=== PATIENT | male | born 1995 | race African-American/Black ===

== ENCOUNTER 2024-03-22 03:19 | Inpatient (IN) | payer OTHER ==
[~2024-03-22] VITALS: Ht 182.9 cm; Wt 69.9 kg
[2024-03-22] MEDS: SODIUM CHLORIDE 0.9% (SEPSIS BOLUS) IV ONE (03:50)
[2024-03-22 03:55] LABS: HEMATOCRIT. 50.8 % (42.0-52.0); HEMOGLOBIN. 15.6 g/dL (14.0-18.0); MEAN CORPUSCULAR HEMOGLOBIN 31.3 pg (28.0-32.0); MEAN CORPUSCULAR HGB CONC 30.7 g/dL (31.0-37.0); MEAN PLATELET VOLUME 9.6 fl (7.4-10.4); PLATELET 295 x1000/uL (130-400); RED BLOOD CELL COUNT 4.98 mill/uL (4.7-6.1); RED CELL DISTRIBUTION WIDTH 16.3 % (11.6-14.6); WHITE BLOOD COUNT 34.2 x1000/uL (4.5-11.0)
[2024-03-22 04:03] LABS: CHLORIDE 93 mEq/L (98-107); SODIUM 128 mEq/L (136-145)
[2024-03-22 04:04] LABS: CALCIUM 9.3 mg/dL (8.7-10.4)
[2024-03-22 04:08] LABS: CREATININE 2.2 mg/dL (0.6-1.3)
[2024-03-22 04:09] LABS: UREA NITROGEN BLOOD 16 mg/dL (9-23)
[2024-03-22 04:10] LABS: TROPONIN I HIGH SENSITIVITY 4 ng/L (3.0-53)
[2024-03-22 04:29] LABS: ETHANOL BLOOD < 10 mg/dL (<10)
[2024-03-22 04:30] LABS: CARBON DIOXIDE < 10 mEq/L (21-32); GLUCOSE 958 mg/dL (70-105)
[2024-03-22 04:32] LABS: LACTIC ACID 4.2 mmol/L (0.4-2.0)
[2024-03-22 04:54] LABS: CLARITY URINE CLEAR (CLEAR); COLOR URINE YELLOW (YELLOW); GLUCOSE URINE 3+ (NEGATIVE); KETONES URINE 4+ (NEGATIVE); LEUKOCYTE ESTERASE URINE NEGATIVE (NEGATIVE); NITRITE URINE NEGATIVE (NEGATIVE); OCCULT BLOOD URINE TRACE (NEGATIVE); PROTEIN URINE 1+ (NEGATIVE); SPECIFIC GRAVITY URINE 1.029 (1.005-1.030); UROBILINOGEN URINE 0.2 E.U./dL (0.2-1.0)
[2024-03-22 04:56] LABS: BG BASE EXCESS -28.8 mmol/L (-2.0-3.0); BG CARBOXYHEMOGLOBIN 0.4 % (0.5-1.5); BG DEOXYHEMOGLOBIN 2.6 % (0.0-5.0); BG FRACTION INSPIRED OXYGEN 21; BG HCO3 ACT 2.7 mmol/L (21.0-28.0); BG METHEMOGLOBIN 0.3 % (0.5-1.5); BG OXYGEN SATURATION 97.4 % (94.0-98.0); BG OXYHEMOGLOBIN 96.7 % (94.0-98.0); BG PCO2 14.1 mmHg (35.0-48.0); BG PH 6.904 (7.350-7.450); BG PO2 118.6 mmHg (83.0-108.0); BG SAMPLE SITE RIGHT RADIAL; BG TOTAL HEMOGLOBIN 14.4 g/dL (13.5-17.5); BG VENT MODE ROOM AIR
[2024-03-22 04:57] LABS: DIFFERENTIAL COMMENT 1
[2024-03-22 05:03] LABS: PARTIAL THROMBOPLASTIN TIME 35.2 sec (23.4-31.0); PROTHROMBIN TIME 11.3 sec (9.6-11.0)
[2024-03-22] MEDS ORDERED: MAGNESIUM 2 G PREMIX 50 ML IV PRN (05:15)
[2024-03-22] MEDS ORDERED: DEXTROSE 50% WATER 50ML SYRINGE IV PRN ×3 (05:15→10:45)
[2024-03-22] MEDS ORDERED: VANCOMYCIN 1G PREMIX 200 ML IV ONE (05:15)
[2024-03-22] MEDS ORDERED: BLOOD SUGAR DIAGNOSTIC STRIP TEST PRN (05:15)
[2024-03-22 05:17] LABS: *AMPHETAMINES SCREEN URINE NEGATIVE (NEGATIVE); *BARBITURATES SCREEN URINE NEGATIVE (NEGATIVE); *BENZODIAZEPINES SCREEN URINE NEGATIVE (NEGATIVE); *COCAINE SCREEN URINE NEGATIVE (NEGATIVE); CANNABINOID URINE SCREEN PRESUMPTIVE POSITIVE (NEGATIVE); ECSTASY MDMA SCREEN URINE NEGATIVE (NEGATIVE); METHADONE URINE SCREEN NEGATIVE (NEGATIVE); OPIATES URINE SCREEN NEGATIVE (NEGATIVE); PHENCYCLIDINE URINE SCREEN NEGATIVE (NEGATIVE)
[2024-03-22] MEDS: POTASSIUM CHLORIDE 20MEQ/PACKET PO NR (05:32)
[2024-03-22 05:39] LABS: CALCIUM 8.6 mg/dL (8.7-10.4)
[2024-03-22] MEDS: PIPERACILLIN/TAZO 3.375G/50ML 50 ML IV NR (05:43)
[2024-03-22 05:44] LABS: CREATININE 1.7 mg/dL (0.6-1.3); UREA NITROGEN BLOOD 12 mg/dL (9-23)
[2024-03-22 05:46] LABS: CREATINE KINASE 38 IU/L (46-171)
[2024-03-22] MEDS: SODIUM BICARBONATE 8.4% 50MEQ/50ML SYR IV NR ×2 (05:48→19:07)
[2024-03-22] MEDS: KCL 20MEQ/100ML PREMIX 100 ML IV PRN (05:59)
[2024-03-22 06:00] LABS: CHLORIDE 104 mEq/L (98-107); POTASSIUM 3.3 mEq/L (3.5-5.1); SODIUM 135 mEq/L (136-145)
[2024-03-22] MEDS: SODIUM CHLORIDE 0.9% 1,000 ML IV SCH (06:05)
[2024-03-22 06:22] LABS: GLUCOSE 724 mg/dL (70-105)
[2024-03-22 06:27] LABS: PLATELET ESTIMATE NORMAL
[2024-03-22 06:44] LABS: RBC URINE 0-2 /hpf (0-2); SQUAMOUS EPITHELIAL CELL URINE FEW /lpf (RARE/1+); WBC URINE 0-2 /hpf (0-2)
[2024-03-22 06:47] LABS: BACTERIA URINE TRACE
[2024-03-22 06:51] LABS: CARBON DIOXIDE < 10 mEq/L (21-32)
[2024-03-22] MEDS: BLOOD SUGAR DIAGNOSTIC STRIP TEST SCH ×2 (07:15→08:00)
[2024-03-22 07:40] LABS: BG BASE EXCESS -25.5 mmol/L (-2.0-3.0); BG CARBOXYHEMOGLOBIN 0.1 % (0.5-1.5); BG DEOXYHEMOGLOBIN 2.7 % (0.0-5.0); BG HCO3 ACT 3.6 mmol/L (21.0-28.0); BG METHEMOGLOBIN 0.1 % (0.5-1.5); BG OXYGEN SATURATION 97.3 % (94.0-98.0); BG OXYHEMOGLOBIN 97.1 % (94.0-98.0); BG PCO2 14.3 mmHg (35.0-48.0); BG PH 7.019 (7.350-7.450); BG PO2 105.2 mmHg (83.0-108.0); BG SAMPLE SITE RIGHT RADIAL; BG TOTAL HEMOGLOBIN 15.4 g/dL (13.5-17.5); BG VENT MODE ROOM AIR
[2024-03-22] MEDS: VANCOMYCIN 1.25GM PMX (XELLIA) 250 ML IV NR (07:51)
[2024-03-22] MEDS ORDERED: INSULIN REGULAR 100U/100ML PMX 100 ML IV SCH ×2 (10:45)
[2024-03-22] MEDS: INSULIN REGULAR 100U/100ML PMX 100 ML IV SCH (11:11)
[2024-03-22] MEDS ORDERED: IPRATROPIUM/ALBUTEROL 0.5-3(2.5)MG/3ML NEB HHN PRN (12:30)
[2024-03-22] MEDS ORDERED: CLONIDINE 0.1MG TABLET PO PRN (12:30)
[2024-03-22] MEDS ORDERED: DOCUSATE SODIUM 100MG CAPSULE PO PRN (12:30)
[2024-03-22] MEDS ORDERED: ACETAMINOPHEN 325MG TABLET PO PRN ×2 (12:30)
[2024-03-22] MEDS ORDERED: ONDANSETRON HCL 4MG/2ML INJ IV PRN (12:30)
[2024-03-22 16:10] LABS: BG BASE EXCESS -23.3 mmol/L (-2.0-3.0); BG CARBOXYHEMOGLOBIN 0.3 % (0.5-1.5); BG DEOXYHEMOGLOBIN 2.1 % (0.0-5.0); BG HCO3 ACT 7.1 mmol/L (21.0-28.0); BG METHEMOGLOBIN 0.4 % (0.5-1.5); BG OXYGEN SATURATION 97.9 % (94.0-98.0); BG OXYHEMOGLOBIN 97.2 % (94.0-98.0); BG PCO2 29.7 mmHg (35.0-48.0); BG PH 6.996 (7.350-7.450); BG PO2 114.9 mmHg (83.0-108.0); BG SAMPLE SITE RIGHT RADIAL; BG TOTAL HEMOGLOBIN 15.3 g/dL (13.5-17.5); BG VENT MODE NASAL CANNULA
[2024-03-22 17:15] LABS: CHLORIDE 126 mEq/L (98-107)
[2024-03-22 17:16] LABS: CALCIUM 9.1 mg/dL (8.7-10.4)
[2024-03-22 17:21] LABS: CREATININE 1.6 mg/dL (0.6-1.3)
[2024-03-22 17:56] LABS: SODIUM 153 mEq/L (136-145); UREA NITROGEN BLOOD 15 mg/dL (9-23)
[2024-03-22 18:09] LABS: GLUCOSE 310 mg/dL (70-105)
[2024-03-22 18:11] LABS: CARBON DIOXIDE < 10 mEq/L (21-32); PHOSPHORUS 0.9 mg/dL (2.5-4.9); POTASSIUM 1.6 mEq/L (3.5-5.1)
[2024-03-22 18:30] VITALS: PULSE 116; RESP 24; O2SAT 100
[2024-03-22] MEDS: POTASSIUM CHLORIDE 40 MEQ in SODIUM CHLORIDE 0.9% 230 ML IV PRN (18:31)
[2024-03-22 19:21] LABS: BG CARBOXYHEMOGLOBIN 0.4 % (0.5-1.5); BG DEOXYHEMOGLOBIN 0.2 % (0.0-5.0); BG FRACTION INSPIRED OXYGEN 100; BG HCO3 ACT 9.9 mmol/L (21.0-28.0); BG METHEMOGLOBIN 0.3 % (0.5-1.5); BG OXYGEN SATURATION 99.8 % (94.0-98.0); BG OXYHEMOGLOBIN 99.1 % (94.0-98.0); BG PH 7.044 (7.350-7.450); BG PO2 482.3 mmHg (83.0-108.0); BG SAMPLE SITE RIGHT BRACHIAL; BG TOTAL HEMOGLOBIN 14.5 g/dL (13.5-17.5); BG TOTAL RESPIRATORY RATE 24 b/min; BG VENT MODE VENT - AC
[2024-03-22] MEDS: SODIUM BICARBONATE 100 MEQ in DEXTROSE 5% WATER 900 ML IV SCH (19:25)
[2024-03-22] MEDS: SODIUM PHOSPHATE 15 MMOL in SODIUM CHLORIDE 0.9% 245 ML IV PRN (19:27)
[2024-03-22 20:05] VITALS: PULSE 125; RESP 27; O2SAT 100
[2024-03-22] MEDS: NOREPINEPHRINE 8MG/250ML PMX 250 ML IV PRN (20:12)
[2024-03-22] MEDS: PROPOFOL 10MG/ML 100ML 100 ML IV PRN (20:13)
[2024-03-22 20:26] VITALS: PULSE 118; RESP 25; O2SAT 99
[2024-03-22] MEDS ORDERED: FENTANYL 2500MCG/250ML PMX 250 ML IV ONE (20:45)
[2024-03-22] MEDS ORDERED: LACTATED RINGERS IV NR (21:00)
[2024-03-22 21:03] LABS: CHLORIDE 126 mEq/L (98-107); SODIUM 155 mEq/L (136-145)
[2024-03-22 21:04] LABS: CALCIUM 8.4 mg/dL (8.7-10.4)
[2024-03-22 21:09] LABS: CREATININE 1.6 mg/dL (0.6-1.3); GLUCOSE 332 mg/dL (70-105); UREA NITROGEN BLOOD 18 mg/dL (9-23)
[2024-03-22 21:29] LABS: CARBON DIOXIDE < 10 mEq/L (21-32); PHOSPHORUS 0.7 mg/dL (2.5-4.9); POTASSIUM 2.2 mEq/L (3.5-5.1)
[2024-03-22] MEDS: FENTANYL CITRATE 2,500 MCG in SODIUM CHLORIDE 0.9% 200 ML IV PRN (21:29)
[2024-03-22 21:56] LABS: BG BASE EXCESS -19.9 mmol/L (-2.0-3.0); BG DEOXYHEMOGLOBIN 40.1 % (0.0-5.0); BG FRACTION INSPIRED OXYGEN 50; BG METHEMOGLOBIN 0.3 % (0.5-1.5); BG OXYGEN SATURATION 59.4 % (94.0-98.0); BG OXYHEMOGLOBIN 58.6 % (94.0-98.0); BG PCO2 54.4 mmHg (35.0-48.0); BG PO2 < 30.3 mmHg (83.0-108.0); BG SAMPLE SITE RIGHT RADIAL; BG TOTAL HEMOGLOBIN 12.9 g/dL (13.5-17.5); BG VENT MODE VENT - AC
[2024-03-22 22:59] VITALS: PULSE 114; RESP 33; O2SAT 100
[2024-03-23] VITALS (77 sets, daily range): BP systolic 97–135; BP diastolic 50–83; PULSE 89–136; RESP 21–31; TEMP 36.72516–37.3076; O2SAT 99–100
[2024-03-23 00:43] LABS: CHLORIDE 124 mEq/L (98-107); SODIUM 152 mEq/L (136-145)
[2024-03-23 00:44] LABS: CALCIUM 8.4 mg/dL (8.7-10.4)
[2024-03-23 00:49] LABS: CREATININE 1.6 mg/dL (0.6-1.3); GLUCOSE 369 mg/dL (70-105); UREA NITROGEN BLOOD 16 mg/dL (9-23)
[2024-03-23 00:51] LABS: PHOSPHORUS 1.1 mg/dL (2.5-4.9)
[2024-03-23 00:54] LABS: CARBON DIOXIDE < 10 mEq/L (21-32)
[2024-03-23 02:31] LABS: BG CARBOXYHEMOGLOBIN 0.3 % (0.5-1.5); BG DEOXYHEMOGLOBIN 0.9 % (0.0-5.0); BG FRACTION INSPIRED OXYGEN 40; BG HCO3 ACT 5.5 mmol/L (21.0-28.0); BG METHEMOGLOBIN 0.3 % (0.5-1.5); BG OXYGEN SATURATION 99.1 % (94.0-98.0); BG OXYHEMOGLOBIN 98.5 % (94.0-98.0); BG PCO2 21.8 mmHg (35.0-48.0); BG PH 7.019 (7.350-7.450); BG PO2 159.6 mmHg (83.0-108.0); BG SAMPLE SITE RIGHT BRACHIAL; BG TOTAL HEMOGLOBIN 14.2 g/dL (13.5-17.5); BG VENT MODE VENT - AC
[2024-03-23 03:34] LABS: CHLORIDE 122 mEq/L (98-107); POTASSIUM 4.1 mEq/L (3.5-5.1); SODIUM 149 mEq/L (136-145)
[2024-03-23 03:35] LABS: CALCIUM 8.7 mg/dL (8.7-10.4)
[2024-03-23 03:40] LABS: CREATININE 1.7 mg/dL (0.6-1.3); GLUCOSE 357 mg/dL (70-105); UREA NITROGEN BLOOD 15 mg/dL (9-23)
[2024-03-23 03:42] LABS: CARBON DIOXIDE < 10 mEq/L (21-32)
[2024-03-23] MEDS: DEXT 5%/LACTATED RINGERS 1,000 ML IV SCH (06:37)
[2024-03-23 08:00] LABS: BG BASE EXCESS -16.4 mmol/L (-2.0-3.0); BG CARBOXYHEMOGLOBIN 0.3 % (0.5-1.5); BG DEOXYHEMOGLOBIN 1.1 % (0.0-5.0); BG HCO3 ACT 10.4 mmol/L (21.0-28.0); BG METHEMOGLOBIN 0.2 % (0.5-1.5); BG OXYGEN SATURATION 98.9 % (94.0-98.0); BG OXYHEMOGLOBIN 98.4 % (94.0-98.0); BG PCO2 27.8 mmHg (35.0-48.0); BG PH 7.189 (7.350-7.450); BG PO2 128.6 mmHg (83.0-108.0); BG SAMPLE SITE RIGHT RADIAL; BG TOTAL HEMOGLOBIN 12.9 g/dL (13.5-17.5); BG VENT MODE VENT - AC
[2024-03-23 11:11] LABS: HEMATOCRIT. 36.8 % (42.0-52.0); HEMOGLOBIN. 12.9 g/dL (14.0-18.0); MEAN CORPUSCULAR HEMOGLOBIN 30.9 pg (28.0-32.0); MEAN CORPUSCULAR HGB CONC 35.2 g/dL (31.0-37.0); MEAN CORPUSCULAR VOLUME 87.8 fL (80.0-94.0); PLATELET 180 x1000/uL (130-400); RED BLOOD CELL COUNT 4.19 mill/uL (4.7-6.1); RED CELL DISTRIBUTION WIDTH 14.2 % (11.6-14.6); WHITE BLOOD COUNT 17.7 x1000/uL (4.5-11.0)
[2024-03-23 11:13] LABS: DIFFERENTIAL COMMENT 1
[2024-03-23 11:26] LABS: CHLORIDE 127 mEq/L (98-107)
[2024-03-23 11:29] LABS: CALCIUM 9.4 mg/dL (8.7-10.4); CARBON DIOXIDE 14 mEq/L (21-32)
[2024-03-23 11:34] LABS: CREATININE 1.7 mg/dL (0.6-1.3); UREA NITROGEN BLOOD 12 mg/dL (9-23)
[2024-03-23 11:36] LABS: ALANINE AMINOTRANSFERASE 9 IU/L (10-49); ALBUMIN 3.7 g/dL (3.2-4.8); ASPARTATE AMINOTRANSFERASE 14 IU/L (<34); BILIRUBIN TOTAL 0.4 mg/dL (0.1-1.0); CREATINE KINASE 64 IU/L (46-171)
[2024-03-23] MEDS: PANTOPRAZOLE SODIUM 40 MG/VIAL IV SCH (12:30)
[2024-03-23] MEDS: ENOXAPARIN 40MG/0.4ML SYR SUBCUT SCH (12:30)
[2024-03-23 12:55] LABS: GLUCOSE 160 mg/dL (70-105)
[2024-03-23 12:57] LABS: POTASSIUM 1.5 mEq/L (3.5-5.1)
[2024-03-23 12:58] LABS: PHOSPHORUS < 0.3 mg/dL (2.5-4.9)
[2024-03-23 12:59] LABS: SODIUM 156 mEq/L (136-145)
[2024-03-23] MEDS: KCL 20MEQ/100ML PREMIX 100 ML IV PRN (13:13)
[2024-03-23] MEDS: SODIUM PHOSPHATE 15 MMOL in SODIUM CHLORIDE 0.9% 245 ML IV NR (13:27)
[2024-03-23 14:22] LABS: PLATELET ESTIMATE NORMAL
[2024-03-23] MEDS: MAGNESIUM 2 G PREMIX 50 ML IV ONE (14:22)
[2024-03-23 14:44] LABS: BG BASE EXCESS -11.2 mmol/L (-2.0-3.0); BG CARBOXYHEMOGLOBIN 0.3 % (0.5-1.5); BG DEOXYHEMOGLOBIN 1.1 % (0.0-5.0); BG FRACTION INSPIRED OXYGEN 30; BG HCO3 ACT 13.7 mmol/L (21.0-28.0); BG METHEMOGLOBIN 0.1 % (0.5-1.5); BG OXYGEN SATURATION 98.9 % (94.0-98.0); BG OXYHEMOGLOBIN 98.5 % (94.0-98.0); BG PCO2 28.1 mmHg (35.0-48.0); BG PH 7.305 (7.350-7.450); BG PO2 138.8 mmHg (83.0-108.0); BG SAMPLE SITE RIGHT RADIAL; BG TOTAL HEMOGLOBIN 12.6 g/dL (13.5-17.5); BG TOTAL RESPIRATORY RATE 26 b/min; BG VENT MODE VENT - AC
[2024-03-23 16:35] LABS: CHLORIDE 125 mEq/L (98-107)
[2024-03-23 16:36] LABS: CARBON DIOXIDE 11 mEq/L (21-32)
[2024-03-23 16:37] LABS: CALCIUM 8.7 mg/dL (8.7-10.4)
[2024-03-23 16:41] LABS: CREATININE 1.6 mg/dL (0.6-1.3); GLUCOSE 248 mg/dL (70-105)
[2024-03-23 16:42] LABS: UREA NITROGEN BLOOD 11 mg/dL (9-23)
[2024-03-23 17:24] LABS: POTASSIUM 1.6 mEq/L (3.5-5.1); SODIUM 156 mEq/L (136-145)
[2024-03-23 17:25] LABS: PHOSPHORUS 0.5 mg/dL (2.5-4.9)
[2024-03-23] MEDS: POTASSIUM CHLORIDE 20MEQ/PACKET NG NR (17:39)
[2024-03-23] MEDS: SODIUM PHOSPHATE 15 MMOL in DEXT 5% WATER 250 ML IV NR (18:35)
[2024-03-23] MEDS ORDERED: PROPOFOL 10MG/ML 100ML 100 ML IV PRN (19:45)
[2024-03-23 19:51] LABS: CHLORIDE 124 mEq/L (98-107); SODIUM 153 mEq/L (136-145)
[2024-03-23 19:52] LABS: CALCIUM 8.8 mg/dL (8.7-10.4)
[2024-03-23 19:57] LABS: CREATININE 1.6 mg/dL (0.6-1.3); UREA NITROGEN BLOOD 11 mg/dL (9-23)
[2024-03-23 19:59] LABS: ALBUMIN 3.3 g/dL (3.2-4.8)
[2024-03-23 20:00] LABS: ALANINE AMINOTRANSFERASE 8 IU/L (10-49); ASPARTATE AMINOTRANSFERASE 15 IU/L (<34); BILIRUBIN TOTAL 0.5 mg/dL (0.1-1.0); PROTEIN TOTAL 5.2 g/dL (6.0-8.3)
[2024-03-23 20:37] LABS: POTASSIUM 1.6 mEq/L (3.5-5.1)
[2024-03-23 20:38] LABS: CARBON DIOXIDE < 10 mEq/L (21-32); GLUCOSE 402 mg/dL (70-105)
[2024-03-23] MEDS ORDERED: BLOOD SUGAR DIAGNOSTIC STRIP TEST PRN (21:00)
[2024-03-23] MEDS ORDERED: SODIUM CHLORIDE 0.9% 1,000 ML IV SCH (21:00)
[2024-03-23] MEDS ORDERED: DEXTROSE 50% WATER 50ML SYRINGE IV PRN (21:00)
[2024-03-23] MEDS ORDERED: DEXT 5%/0.9% NACL 1,000 ML IV SCH (21:00)
[2024-03-23] MEDS: MAGNESIUM 2 G PREMIX 50 ML IV PRN (21:50)
[2024-03-23] MEDS: POTASSIUM CHLORIDE 40 MEQ in SODIUM CHLORIDE 0.9% 250 ML IV PRN (22:08)
[2024-03-23] MEDS: POTASSIUM CHLORIDE 20MEQ/PACKET PO NR (22:32)
[2024-03-23 23:51] LABS: POTASSIUM 2.5 mEq/L (3.5-5.1)
[2024-03-24] VITALS (107 sets, daily range): BP systolic 95–132; BP diastolic 53–93; PULSE 68–128; RESP 21–27; TEMP 36.6696–37.00296; O2SAT 94–100
[2024-03-24] MEDS: SODIUM PHOSPHATE 15 MMOL in SODIUM CHLORIDE 0.9% 245 ML IV PRN (00:19)
[2024-03-24 01:32] LABS: CHLORIDE 122 mEq/L (98-107); POTASSIUM 3.3 mEq/L (3.5-5.1); SODIUM 152 mEq/L (136-145)
[2024-03-24 01:33] LABS: CALCIUM 8.9 mg/dL (8.7-10.4)
[2024-03-24 01:38] LABS: CREATININE 1.7 mg/dL (0.6-1.3); UREA NITROGEN BLOOD 10 mg/dL (9-23)
[2024-03-24 01:46] LABS: GLUCOSE 536 mg/dL (70-105)
[2024-03-24 01:47] LABS: CARBON DIOXIDE < 10 mEq/L (21-32)
[2024-03-24 01:47] LABS: PHOSPHORUS 0.7 mg/dL (2.5-4.9)
[2024-03-24] MEDS: KCL 20MEQ/100ML PREMIX 100 ML IV PRN (02:02)
[2024-03-24] MEDS ORDERED: SODIUM CHLORIDE 0.45% 1,000 ML IV SCH (02:15)
[2024-03-24] MEDS: LACTATED RINGERS 1,000 ML IV SCH (04:20)
[2024-03-24] MEDS ORDERED: SODIUM CHLORIDE 0.45% 1,000 ML IV ONE (04:45)
[2024-03-24] MEDS: SODIUM BICARBONATE 8.4% 50MEQ/50ML SYR IV NR (05:37)
[2024-03-24] MEDS ORDERED: SODIUM CHLORIDE 0.45% 1,000 ML IV NR (06:00)
[2024-03-24 06:27] LABS: CARBON DIOXIDE 12 mEq/L (21-32); CHLORIDE 126 mEq/L (98-107)
[2024-03-24 06:32] LABS: CREATININE 1.7 mg/dL (0.6-1.3)
[2024-03-24 06:33] LABS: UREA NITROGEN BLOOD 11 mg/dL (9-23)
[2024-03-24 06:46] LABS: POTASSIUM 2.4 mEq/L (3.5-5.1)
[2024-03-24 06:47] LABS: GLUCOSE 461 mg/dL (70-105)
[2024-03-24 06:48] LABS: PHOSPHORUS 0.4 mg/dL (2.5-4.9)
[2024-03-24 07:00] LABS: TRIGLYCERIDE 1321 mg/dL (0-150)
[2024-03-24 07:03] LABS: SODIUM 160 mEq/L (136-145)
[2024-03-24] MEDS ORDERED: POTASSIUM PHOSPHATE 30 MMOL in DEXT 5% WATER 490 ML IV NR (08:30)
[2024-03-24] MEDS ORDERED: PROPOFOL 10MG/ML 100ML 100 ML IV PRN (09:00)
[2024-03-24] MEDS: POTASSIUM CHLORIDE 20MEQ/PACKET PO NR (09:05)
[2024-03-24] MEDS: SODIUM CHL 0.45% + KCL 20MEQ/L 1,000 ML IV SCH (09:43)
[2024-03-24] MEDS: POTASSIUM PHOSPHATE 15MMOL in DEXTROSE 5% WATER 250ML IV SCH (09:43)
[2024-03-24 09:56] LABS: PHOSPHORUS < 0.3 mg/dL (2.5-4.9)
[2024-03-24] MEDS: MIDAZOLAM 100MG/100ML PMX 100 ML IV PRN (10:09)
[2024-03-24 14:34] LABS: CHLORIDE 124 mEq/L (98-107)
[2024-03-24 14:35] LABS: CALCIUM 8.6 mg/dL (8.7-10.4); CARBON DIOXIDE 15 mEq/L (21-32)
[2024-03-24 14:40] LABS: CREATININE 1.4 mg/dL (0.6-1.3); GLUCOSE 343 mg/dL (70-105); UREA NITROGEN BLOOD 10 mg/dL (9-23)
[2024-03-24 14:44] LABS: POTASSIUM 2.4 mEq/L (3.5-5.1); SODIUM 160 mEq/L (136-145)
[2024-03-24] MEDS: POTASSIUM CHLORIDE 20MEQ/PACKET PO SCH (15:02)
[2024-03-24 16:39] LABS: CALCIUM 8.4 mg/dL (8.7-10.4); CARBON DIOXIDE 14 mEq/L (21-32); CHLORIDE 125 mEq/L (98-107); POTASSIUM 3.4 mEq/L (3.5-5.1)
[2024-03-24 16:44] LABS: CREATININE 1.4 mg/dL (0.6-1.3); GLUCOSE 345 mg/dL (70-105)
[2024-03-24 16:45] LABS: UREA NITROGEN BLOOD 10 mg/dL (9-23)
[2024-03-24 17:02] LABS: SODIUM 163 mEq/L (136-145)
[2024-03-24] MEDS: POTASSIUM PHOSPHATE 10 MMOL in DEXT 5% WATER 246.6667 ML IV NR (21:44)
[2024-03-24 22:05] LABS: BASOPHILS % 0.1 % (0.0-2.0); EOSINOPHILS % 0.2 % (0.0-5.0); HEMATOCRIT. 32.7 % (42.0-52.0); HEMOGLOBIN. 11.6 g/dL (14.0-18.0); LYMPHOCYTES % 8.9 % (20.0-50.0); MEAN CORPUSCULAR HEMOGLOBIN 30.8 pg (28.0-32.0); MEAN CORPUSCULAR HGB CONC 35.4 g/dL (31.0-37.0); MEAN CORPUSCULAR VOLUME 86.9 fL (80.0-94.0); NEUTROPHILS % 84.8 % (40.0-76.0); PLATELET 178 x1000/uL (130-400); RED BLOOD CELL COUNT 3.77 mill/uL (4.7-6.1); RED CELL DISTRIBUTION WIDTH 14.5 % (11.6-14.6); WHITE BLOOD COUNT 15.8 x1000/uL (4.5-11.0)
[2024-03-24 22:08] LABS: CARBON DIOXIDE 19 mEq/L (21-32); CHLORIDE 127 mEq/L (98-107); POTASSIUM 3.3 mEq/L (3.5-5.1)
[2024-03-24 22:09] LABS: CALCIUM 8.6 mg/dL (8.7-10.4)
[2024-03-24 22:13] LABS: CREATININE 1.5 mg/dL (0.6-1.3); GLUCOSE 293 mg/dL (70-105)
[2024-03-24 22:14] LABS: UREA NITROGEN BLOOD 13 mg/dL (9-23)
[2024-03-24 22:16] LABS: PHOSPHORUS 1.4 mg/dL (2.5-4.9)
[2024-03-24 22:30] LABS: SODIUM 163 mEq/L (136-145)
[2024-03-25] VITALS (90 sets, daily range): BP systolic 108–148; BP diastolic 69–108; PULSE 90–141; RESP 15–33; TEMP 36.83628–37.33632; O2SAT 90–100
[2024-03-25 01:24] LABS: CHLORIDE 128 mEq/L (98-107); POTASSIUM 3.6 mEq/L (3.5-5.1)
[2024-03-25 01:25] LABS: CALCIUM 8.5 mg/dL (8.7-10.4); CARBON DIOXIDE 24 mEq/L (21-32)
[2024-03-25 01:29] LABS: CREATININE 1.2 mg/dL (0.6-1.3); GLUCOSE 98 mg/dL (70-105)
[2024-03-25 01:30] LABS: UREA NITROGEN BLOOD 12 mg/dL (9-23)
[2024-03-25 01:32] LABS: PHOSPHORUS 1.3 mg/dL (2.5-4.9)
[2024-03-25 01:51] LABS: SODIUM 165 mEq/L (136-145)
[2024-03-25] MEDS ORDERED: POTASSIUM CHLORIDE 40 MEQ in DEXT 5% WATER 250 ML IV PRN (02:33)
[2024-03-25] MEDS: DEXT 5% WATER + KCL 20MEQ/L 1,000 ML IV SCH (03:22)
[2024-03-25 06:29] LABS: CALCIUM 8.5 mg/dL (8.7-10.4); CARBON DIOXIDE 17 mEq/L (21-32); CHLORIDE 123 mEq/L (98-107); POTASSIUM 3.6 mEq/L (3.5-5.1)
[2024-03-25 06:34] LABS: CREATININE 1.2 mg/dL (0.6-1.3); GLUCOSE 197 mg/dL (70-105)
[2024-03-25 06:35] LABS: TRIGLYCERIDE 620 mg/dL (0-150); UREA NITROGEN BLOOD 11 mg/dL (9-23)
[2024-03-25 06:38] LABS: T4 FREE 0.97 ng/dL (0.89-1.76)
[2024-03-25 06:39] LABS: THYROID STIMULATING HORMONE 0.12 uIU/mL (0.55-4.78)
[2024-03-25 08:14] LABS: SODIUM 161 mEq/L (136-145)
[2024-03-25 08:25] LABS: HEMATOCRIT. 29.4 % (42.0-52.0); HEMOGLOBIN. 10.3 g/dL (14.0-18.0); MEAN CORPUSCULAR HEMOGLOBIN 30.9 pg (28.0-32.0); MEAN CORPUSCULAR VOLUME 88.2 fL (80.0-94.0); MEAN PLATELET VOLUME 8.1 fl (7.4-10.4); PLATELET 170 x1000/uL (130-400); RED BLOOD CELL COUNT 3.33 mill/uL (4.7-6.1); WHITE BLOOD COUNT 15.9 x1000/uL (4.5-11.0)
[2024-03-25 08:27] LABS: DIFFERENTIAL COMMENT 1
[2024-03-25 09:54] LABS: CHLORIDE 126 mEq/L (98-107); POTASSIUM 3.6 mEq/L (3.5-5.1)
[2024-03-25 09:55] LABS: CALCIUM 8.4 mg/dL (8.7-10.4); CARBON DIOXIDE 23 mEq/L (21-32)
[2024-03-25 10:00] LABS: CREATININE 1.1 mg/dL (0.6-1.3); GLUCOSE 163 mg/dL (70-105); UREA NITROGEN BLOOD 11 mg/dL (9-23)
[2024-03-25 10:10] LABS: SODIUM 160 mEq/L (136-145)
[2024-03-25 10:46] LABS: BG BASE EXCESS 0.2 mmol/L (-2.0-3.0); BG CARBOXYHEMOGLOBIN 0.2 % (0.5-1.5); BG DEOXYHEMOGLOBIN 2.3 % (0.0-5.0); BG FRACTION INSPIRED OXYGEN 30; BG HCO3 ACT 23.4 mmol/L (21.0-28.0); BG METHEMOGLOBIN 0.3 % (0.5-1.5); BG OXYGEN SATURATION 97.7 % (94.0-98.0); BG OXYHEMOGLOBIN 97.2 % (94.0-98.0); BG PH 7.469 (7.350-7.450); BG PO2 95.6 mmHg (83.0-108.0); BG SAMPLE SITE RIGHT BRACHIAL; BG VENT MODE VENT - AC
[2024-03-25] MEDS ORDERED: DEXTROSE 50% WATER 50ML SYRINGE IV PRN (15:15)
[2024-03-25] MEDS: BLOOD SUGAR DIAGNOSTIC STRIP TEST SCH (15:24)
[2024-03-25 16:09] LABS: CHLORIDE 119 mEq/L (98-107); POTASSIUM 3.5 mEq/L (3.5-5.1); SODIUM 155 mEq/L (136-145)
[2024-03-25 16:10] LABS: CARBON DIOXIDE 21 mEq/L (21-32)
[2024-03-25 16:11] LABS: CALCIUM 8.3 mg/dL (8.7-10.4)
[2024-03-25 16:15] LABS: CREATININE 1.1 mg/dL (0.6-1.3); GLUCOSE 261 mg/dL (70-105); UREA NITROGEN BLOOD 12 mg/dL (9-23)
[2024-03-25] MEDS: INSULIN LISPRO 100 UNITS/ML SUBCUT SCH (16:25)
[2024-03-25] MEDS: INSULIN GLARGINE 100 UNITS/ML SUBCUT SCH (16:25)
[2024-03-25 18:05] LABS: PLATELET ESTIMATE NORMAL
[2024-03-25] MEDS ORDERED: LACTATED RINGERS 1,000 ML IV SCH (19:00)
[2024-03-25 19:49] LABS: BG BASE EXCESS -0.6 mmol/L (-2.0-3.0); BG CARBOXYHEMOGLOBIN 0.8 % (0.5-1.5); BG DEOXYHEMOGLOBIN 6.2 % (0.0-5.0); BG FRACTION INSPIRED OXYGEN 35; BG HCO3 ACT 22.7 mmol/L (21.0-28.0); BG METHEMOGLOBIN 0.3 % (0.5-1.5); BG OXYGEN SATURATION 93.7 % (94.0-98.0); BG OXYHEMOGLOBIN 92.7 % (94.0-98.0); BG PCO2 32.9 mmHg (35.0-48.0); BG PH 7.457 (7.350-7.450); BG PO2 60.7 mmHg (83.0-108.0); BG SAMPLE SITE RIGHT RADIAL; BG TOTAL HEMOGLOBIN 11.7 g/dL (13.5-17.5); BG VENT MODE COOL AEROSOL
[2024-03-25 21:10] LABS: CHLORIDE 118 mEq/L (98-107); POTASSIUM 3.4 mEq/L (3.5-5.1); SODIUM 153 mEq/L (136-145)
[2024-03-25 21:11] LABS: CARBON DIOXIDE 25 mEq/L (21-32)
[2024-03-25 21:12] LABS: CALCIUM 8.4 mg/dL (8.7-10.4)
[2024-03-25 21:16] LABS: GLUCOSE 250 mg/dL (70-105); UREA NITROGEN BLOOD 12 mg/dL (9-23)
[2024-03-25 21:19] LABS: BETA HYDROXYBUTYRATE 0.8 mMol/L (0.0-0.3)
[2024-03-25] MEDS: QUETIAPINE FUMARATE 50MG TABLET PO SCH (21:40)
[2024-03-26] VITALS (62 sets, daily range): BP systolic 75–145; BP diastolic 38–101; PULSE 79–112; RESP 14–28; TEMP 36.16956–37.16964; O2SAT 84–100
[2024-03-26 05:18] LABS: CARBON DIOXIDE 28 mEq/L (21-32); CHLORIDE 115 mEq/L (98-107); POTASSIUM 4.3 mEq/L (3.5-5.1); SODIUM 151 mEq/L (136-145)
[2024-03-26 05:19] LABS: CALCIUM 8.4 mg/dL (8.7-10.4)
[2024-03-26 05:24] LABS: GLUCOSE 265 mg/dL (70-105); UREA NITROGEN BLOOD 11 mg/dL (9-23)
[2024-03-26 05:26] LABS: PHOSPHORUS 1.8 mg/dL (2.5-4.9)
[2024-03-26 05:42] LABS: BASOPHILS % 0.1 % (0.0-2.0); EOSINOPHILS % 0.8 % (0.0-5.0); LYMPHOCYTES % 12.4 % (20.0-50.0); MEAN CORPUSCULAR HEMOGLOBIN 30.5 pg (28.0-32.0); MEAN CORPUSCULAR HGB CONC 34.5 g/dL (31.0-37.0); MEAN CORPUSCULAR VOLUME 88.5 fL (80.0-94.0); MONOCYTES % 12.4 % (2.0-8.0); NEUTROPHILS % 74.3 % (40.0-76.0); PLATELET 138 x1000/uL (130-400); RED BLOOD CELL COUNT 3.25 mill/uL (4.7-6.1); RED CELL DISTRIBUTION WIDTH 15.1 % (11.6-14.6); WHITE BLOOD COUNT 12.2 x1000/uL (4.5-11.0)
[2024-03-26 06:08] LABS: HEMATOCRIT. 28.7 % (42.0-52.0); HEMOGLOBIN. 9.9 g/dL (14.0-18.0)
[2024-03-26] MEDS: BLOOD SUGAR DIAGNOSTIC STRIP TEST SCH (10:28)
[2024-03-26] MEDS: POTASSIUM PHOSPHATE 20 MMOL in SODIUM CHLORIDE 0.9% 243.3333 ML IV NR (10:32)
[2024-03-26] MEDS ORDERED: BLOOD SUGAR DIAGNOSTIC STRIP TEST SCH (12:00)
[2024-03-27] VITALS (29 sets, daily range): BP systolic 101–127; BP diastolic 70–83; PULSE 69–81; RESP 13–24; TEMP 36.55848–37.05852; O2SAT 97–100
[2024-03-27 05:56] LABS: HEMATOCRIT. 28.2 % (42.0-52.0); HEMOGLOBIN. 9.8 g/dL (14.0-18.0); MEAN CORPUSCULAR HEMOGLOBIN 30.7 pg (28.0-32.0); MEAN CORPUSCULAR HGB CONC 34.6 g/dL (31.0-37.0); MEAN CORPUSCULAR VOLUME 88.6 fL (80.0-94.0); MEAN PLATELET VOLUME 7.9 fl (7.4-10.4); PLATELET 153 x1000/uL (130-400); RED BLOOD CELL COUNT 3.18 mill/uL (4.7-6.1); RED CELL DISTRIBUTION WIDTH 14.6 % (11.6-14.6); WHITE BLOOD COUNT 10.2 x1000/uL (4.5-11.0)
[2024-03-27 06:07] LABS: CARBON DIOXIDE 31 mEq/L (21-32); CHLORIDE 110 mEq/L (98-107); SODIUM 148 mEq/L (136-145)
[2024-03-27 06:12] LABS: CREATININE 0.7 mg/dL (0.6-1.3); GLUCOSE 172 mg/dL (70-105); UREA NITROGEN BLOOD 17 mg/dL (9-23)
[2024-03-27 06:14] LABS: PHOSPHORUS 3.3 mg/dL (2.5-4.9)
[2024-03-27 06:52] LABS: DIFFERENTIAL COMMENT 1
[2024-03-27] MEDS: POTASSIUM CHLORIDE 20MEQ TABLET SR PO SCH (09:48)
[2024-03-27 17:20] LABS: PLATELET ESTIMATE NORMAL
[2024-03-27] MEDS: INSULIN LISPRO 100 UNITS/ML SUBCUT SCH (20:54)
[2024-03-28] VITALS (13 sets, daily range): BP systolic 101–118; BP diastolic 59–81; PULSE 71–99; RESP 13–31; TEMP 36.114–37.11408; O2SAT 92–98
[2024-03-28] MEDS ORDERED: DEXTROSE 50% WATER 50ML SYRINGE IV PRN (01:00)
[2024-03-28 06:50] LABS: HEMATOCRIT. 29.6 % (42.0-52.0); HEMOGLOBIN. 10.1 g/dL (14.0-18.0); MEAN CORPUSCULAR HEMOGLOBIN 30.6 pg (28.0-32.0); MEAN CORPUSCULAR HGB CONC 34.3 g/dL (31.0-37.0); MEAN CORPUSCULAR VOLUME 89.3 fL (80.0-94.0); MEAN PLATELET VOLUME 7.6 fl (7.4-10.4); PLATELET 195 x1000/uL (130-400); RED BLOOD CELL COUNT 3.31 mill/uL (4.7-6.1); RED CELL DISTRIBUTION WIDTH 14.2 % (11.6-14.6); WHITE BLOOD COUNT 6.5 x1000/uL (4.5-11.0)
[2024-03-28 07:08] LABS: DIFFERENTIAL COMMENT 1
[2024-03-28 07:13] LABS: CALCIUM 8.4 mg/dL (8.7-10.4); CARBON DIOXIDE 27 mEq/L (21-32); CHLORIDE 110 mEq/L (98-107); POTASSIUM 3.1 mEq/L (3.5-5.1); SODIUM 146 mEq/L (136-145)
[2024-03-28 07:19] LABS: CREATININE 0.7 mg/dL (0.6-1.3); GLUCOSE 150 mg/dL (70-105); UREA NITROGEN BLOOD 19 mg/dL (9-23)
[2024-03-28 07:21] LABS: PHOSPHORUS 3.5 mg/dL (2.5-4.9)
[2024-03-28 19:28] LABS: PLATELET ESTIMATE NORMAL
== END 2024-03-28 23:00 | disposition short-term general hospital (02) | DRG 871 ==
LOC: ER 03:34 → MICUSO 06:40 → EDBEDREQSVC 06:44 → EDBEDREQTM 06:44 → EDBEDREQ 06:44 → 5EST 03-27 14:04
PROVIDERS: ADMIT Internal Medicine; ATTEND Internal Medicine
PROC: 5A1945Z Respiratory Ventilation, 24-96 Consecutive Hours (ICD-10-PCS; principal; 2024-03-22)
PROC: 0BH17EZ Insertion of Endotracheal Airway into Trachea, Via Natural or Artificial Opening (ICD-10-PCS; 2024-03-22)
PROC: 06HY33Z Insertion of Infusion Device into Lower Vein, Percutaneous Approach (ICD-10-PCS; 2024-03-22)
PROC: B54BZZA Ultrasonography of Right Lower Extremity Veins, Guidance (ICD-10-PCS; 2024-03-22)
DX: A41.9 Sepsis, unspecified organism (principal); E10.10 Type 1 diabetes mellitus with ketoacidosis without coma; R65.21 Severe sepsis with septic shock; G93.41 Metabolic encephalopathy; N17.0 Acute kidney failure with tubular necrosis; J96.01 Acute respiratory failure with hypoxia; E87.0 Hyperosmolality and hypernatremia; E87.6 Hypokalemia; R80.9 Proteinuria, unspecified; E10.22 Type 1 diabetes mellitus with diabetic chronic kidney disease; Z20.822 Contact with and (suspected) exposure to COVID-19; N18.9 Chronic kidney disease, unspecified; E83.51 Hypocalcemia; E83.39 Other disorders of phosphorus metabolism; E83.42 Hypomagnesemia; R01.1 Cardiac murmur, unspecified; D64.9 Anemia, unspecified; E78.1 Pure hyperglyceridemia; F32.A Depression, unspecified; F41.9 Anxiety disorder, unspecified; Z79.4 Long term (current) use of insulin; Z74.01 Bed confinement status; Z78.1 Physical restraint status
CPT/HCPCS: 31500; 36415; 36600; 71045; 76770; 80048; 80051; 80053; 80305; 80320; 81003; 82010; 82375; 82533; 82550; 82805; 82962; 83036; 83519; 83520; 83605; 83735; 83880; 83930; 84100; 84132; 84145; 84439; 84443; 84478; 84481; 84484; 84681; 85025; 87426; 87804; 92610; 93005; 93306; 94003; 99291; J1650; J1815; J2250; J2470; J2543; J2704; J3010; J3370; J3475; J3480; J3490; J7030; J7040; J7050; J7060; J7070; J7121; G0480